=== PATIENT | male | born 1955 | race Caucasian/White ===

== ENCOUNTER → 2016-12-26 | Outpatient (CLI) | payer SELFPAY ==
--- NOTE | 2016-12-26 14:48 | CT ---
EXAMINATION TYPE: CT heart w calcium score DATE OF EXAM: 12/26/2016 8:19 AM COMPARISON: NONE HISTORY: Screening for cardiovascular disorder. 213.9 CT DLP: 97.60 mGycm Automated exposure control for dose reduction was used. CT CALCIUM SCORING Coronary calcium is a marker for plaque (fatty deposits) in a blood vessel or atherosclerosis (harden ing of the arteries). The presence and amount of calcium detected in a coronary artery by the CT sca n, indicates the presence and amount of atherosclerotic plaque. These calcium deposits appear years before the development of heart disease symptoms such as chest pain and shortness of breath. A calcium score is computed for each of the coronary arteries based upon the volume and density of th e calcium deposits. This can be referred to as your calcified plaque burden. It does not correspond directly to the percentage of narrowing in the artery but does correlate with the severity of the un derlying coronary atherosclerosis. PROCEDURE TECHNIQUE - Prospective Gating was used. Slice thickness: 3mm. Density threshold (HU): 130, Pixel threshold: 3, Algorithm: discrete. RESULTS Region: LM Calcium Score ([place]at[place]): 0 Volume (mm3): 0 Mass (g): 0 Region: RCA Calcium Score ([place]): 0 Volume (mm3): 0 Mass (g): 0 Region: LAD Calcium Score ([place]at[place]): 0 Volume (mm3): 0 Mass (g): 0 Region: CX Calcium Score ([place]at[place]): 0 Volume (mm3): 0 Mass (g): 0 Total: Calcium Score ([place]at[place]): 0 Volume (mm3): 0 Mass (g): 0 TOTAL CALCIUM SCORE: 0 OTHER: Ascending thoracic aorta measures 4.1 cm at the level of the main pulmonary artery. The main pulmonary artery measures 2.8 cm at the bifurcation. IMPRESSION: Calcium Score: 0 Implication: No identifiable plaque. Risk of Coronary Artery Disease: Very low, generally less than 5%.
== END | disposition home or self-care (01) ==
LOC: RADCTMAIN 06:53
PROVIDERS: ATTEND Radiology Diagnostic Radiology
DX: Z53.9 Procedure and treatment not carried out, unspecified reason (principal)

== ENCOUNTER → 2017-03-20 | Outpatient (CLI) | payer MEDICAID ==
[2017-03-20 08:42] LABS: Non-African American GFR(MDRD) >60 (>60 ml/min/1.73 sqM)
--- NOTE | 2017-03-20 13:26 | MR ---
EXAMINATION TYPE: MR brain and iac wo/w con DATE OF EXAM: 03/20/2017 COMPARISON: NONE HISTORY: tinnitus hearing loss TECHNIQUE: Multiplanar, multisequence images of the brain and brainstem is performed without and with IV contras t, utilizing 20 mL intravenous MultiHance . FINDINGS: Diffusion weighted images demonstrate no evidence of a recent infarct or other diffusion ab normality. No evidence of cerebellopontine angle mass or acoustic schwannoma. Nasopharynx is symmetric. Changes of chronic sinusitis noted. Mild generalized degenerative change. Areas of abnormal signal are seen throughout the white matter b ilaterally. Findings are nonspecific can be seen with remote microvascular ischemia. Demyelinating pr ocess or other etiologies also in the differential. Craniocervical junction is maintained. Sella turcica has a normal appearance. IMPRESSION: 1. Nonspecific white matter changes most likely on the basis of remote microvascular ischemia. 2. No evidence of cerebellopontine angle mass or acoustic schwannoma.
== END | disposition home or self-care (01) ==
LOC: RADMRIMAIN 08:19
PROVIDERS: ATTEND Nurse Practitioner Family
DX: R90.82 White matter disease, unspecified (principal); H93.19 Tinnitus, unspecified ear; H91.92 Unspecified hearing loss, left ear
CPT/HCPCS: 82565; 70553; A9577

== ENCOUNTER → 2018-05-13 | Outpatient (CLI) | payer MEDICAID | END | disposition home or self-care (01) | LOC: LABWHC1 11:12 | PROVIDERS: ATTEND Radiology Diagnostic Radiology | DX: Z01.812 Encounter for preprocedural laboratory examination (principal) | CPT/HCPCS: 36415; 82565 ==

== ENCOUNTER → 2018-05-14 | Outpatient (CLI) | payer MEDICAID ==
--- NOTE | 2018-05-15 10:39 | MR ---
EXAMINATION TYPE: MR Prostate wo/w con DATE OF EXAM: 05/14/2018 COMPARISON: None IMAGE QUALITY: Good. INDICATION: Test PSA: n/a ng/ml Recent Biopsy and Date: n/a Pathology Report (If Applicable): n/a TECHNIQUE: Examination was performed using a 3T MRI without an endorectal coil. Multiparametric imaging was perf ormed with T2 mutliplanar sequences, axial diffusion weighted imaging and dynamic contrast enhanced i maging, utilizing 10 mL intravenous Gadavist gadolinium contrast. FINDINGS: There is no clinically significant cancer identified. PROSTATE VOLUME: 4.7 cm SI x 4.0 cm AP x 5.0 cm LR Vol= 35.9 cc PSA DENSITY: 4.308 ng/ml/cc (predicted) Seminal vesicles felt within normal limits. Overall some heterogeneity without diffusion abnormality in the peripheral zone or suspicious T2 abnormality in the transitional zone. Other: A few diverticula are identified in visualized portion of the proximal to mid sigmoid colon. IMPRESSION: A focus of clinically significant cancer is not identified. False negative rates for MRI range from 5-20% depending on risk profile. Prostate gland is slightly enlarged in size. Assessment Categories: 1 ? Very low (clinically significant cancer is highly unlikely to be present) 2 ? Low (clinically significant cancer is unlikely to be present) 3 ? Intermediate (the presence of clinically significant cancer is equivocal) 4 ? High (clinically significant cancer is likely to be present) 5 ? Very high (clinically significant cancer is highly likely to be present) Locations: PZ = peripheral zone; TZ = transition zone CZ=central zone; AFS = anterior fibromuscular stroma a=anterior half (i.e. PZa=anterior half of peripheral zone); pm= posterior medial (i.e PZpm) pl = postero-lateral (i.e. PZpl); p = posterior half (i.e. TZp) ; a = anterior half (i.e TZa or P Za) Other: N=no or no; E= equivocal; Y=yes EPE = extraprostatic extension NVB = neurovascular bundle NA = not applicable/not available
== END | disposition home or self-care (01) ==
LOC: RADMRIMAIN 06:36
PROVIDERS: ATTEND Radiology Diagnostic Radiology
DX: Z53.9 Procedure and treatment not carried out, unspecified reason (principal)
CPT/HCPCS: 72197

== ENCOUNTER → 2020-03-08 | Outpatient (CLI) | payer MEDICAID ==
--- NOTE | 2020-03-08 16:19 | CT ---
EXAMINATION TYPE: CT sinus wo con DATE OF EXAM: 03/08/2020 COMPARISON: None HISTORY: Sinus drainage with prior surgery CT DLP: 603 mGycm CONTRAST: 0 mL of Isovue 300 The paranasal sinuses are examined in the axial plane at 2 mm thick sections. Reconstructed images i n the coronal plane were obtained. There is dental amalgam scatter artifact Mucosal thickening is present through the left maxillary sinus. Minimal mucosal thickening is within ethmoid air cells. The sphenoid sinuses are clear. The frontal sinuses are clear. The septum is evaluated. There is septal deviation to the left. Right ostiomeatal unit is patent. There appears to be obstruction of the left ostiomeatal unit with o bstruction to the hiatus semilunaris. IMPRESSIONS: 1. Mucosal thickening within left maxillary sinus with obstruction of the left ostiomeatal unit.
== END | disposition home or self-care (01) ==
LOC: RADCTMAIN 15:46
PROVIDERS: ATTEND Otolaryngology
DX: J34.89 Other specified disorders of nose and nasal sinuses (principal)
CPT/HCPCS: 70486

== ENCOUNTER → 2024-08-04 | Outpatient (CLI) | payer MEDICARE ==
--- NOTE | 2024-08-04 14:55 | MR ---
EXAMINATION TYPE: MR cervical spine wo con DATE OF EXAM: 08/04/2024 2:01 PM COMPARISON: 03/20/2015 CLINICAL INDICATION: Male, 68 years old with history of M48.02, M47.812, M54.12, Pain in neck, head, and arms TECHNIQUE: Multiplanar, multisequence images of the cervical spine were acquired without contrast. FINDINGS: No endocervical junction abnormality, predental space widening, or prevertebral soft tissue swelling. Mild to moderate degenerative disc disease with variable mild disc space narrowing along with disc de siccation. Disc osteophyte complexes are present particularly at C5-C6 and C6/C7, progressed from 201 5. There is trace grade 1 retrolisthesis C5-C6. Moderate scattered facet joint arthropathy throughout. Straightening of the normal cervical lordosis. No suspicious bone marrow replacement. Disc osteophyte complex at C5-C6 contributes to a mild spinal canal stenosis with abutment of both th e dorsal and ventral cord. The overall degree of narrowing has not considerably increased from 2014. Posterior disc osteophyte complex at C6-C7 impresses on the ventral thecal sac with minimal narrowing of the spinal canal. Normal course and signal intensity of the cervical spinal cord. At C3-C4, severe left and moderate right neuroforaminal stenosis. At C4-C5, moderate to severe left and mild right neuroforaminal stenosis. At C5-C6, severe bilateral neuroforaminal stenoses. At C6-C7, moderate bilateral neuroforaminal stenoses. At C7-T1, moderate to severe left and mild right neuroforaminal stenosis. IMPRESSION: 1. Ogtt-xk-kcasviow degenerative disc disease particularly at C5-C6 and C6-C7 shows progression from 03/20/2015. The disc osteophyte complexes here contributing to similar mild spinal canal stenosis at C 5-C6. Interval development of minimal spinal canal narrowing at C6-C7. No cord compression or gunnar c anal compromise. 2. There is scattered moderate facet and uncovertebral joint arthropathy throughout with a degenerati ve trace grade 1 retrolisthesis C5-C6. 3. Variable moderate to severe neuroforaminal stenoses as outlined above. [facility], , 08/04/2024 2:53 PM
== END | disposition home or self-care (01) ==
LOC: RADMRIMAIN 12:54
PROVIDERS: ATTEND Orthopaedic Surgery
DX: M48.02 Spinal stenosis, cervical region (principal); M50.123 Cervical disc disorder at C6-C7 level with radiculopathy; M47.22 Other spondylosis with radiculopathy, cervical region; M43.12 Spondylolisthesis, cervical region; M25.78 Osteophyte, vertebrae
CPT/HCPCS: 72141

== ENCOUNTER → 2025-01-11 | Outpatient (CLI) | payer MEDICARE | END | disposition home or self-care (01) | LOC: LABPAT 11:13 | PROVIDERS: ATTEND Orthopaedic Surgery | DX: Z22.322 Carrier or suspected carrier of Methicillin resistant Staphylococcus aureus (principal) | CPT/HCPCS: 86850; 86900; 86901; 87070 ==

== ENCOUNTER 2025-01-18 07:04 | Day surgery (SDC) | payer MEDICARE ==
--- NOTE | 2025-01-18 06:41 | P.HPOR ---
History of Present Illness H&P Date: 01/13/25 .D:Date: 01/13/25 : 11:55am .T:Title: Spine Surgery Clinical and Risk Review Anjel is a 69 yo male presenting for evaluation of neck pain, arm pain and paresthesias . It was my pleasure to have seen and examined Anjel. In our visit today we have had a chance to go over subjective complaints, physical examination findings and treatments including the natural course history without intervention and various interventional options. The patients imaging demonstrates the following: * C5-7 spondylosis with HNP and stenosis C5-7 collapse with DDD and foraminal stenosis On physical exam, Anjel demonstrates the following: * neck pain with ROM UE paresthesias, pos Spurlung's UE weakness I have explained to the patient that as their condition progresses it will cause further neurological deficits and eventual paralysis. Based on the patients imaging, physical exam, and the rapid progression and disabling nature of their symptoms, at this time I recommend surgery in the form or a: C5-7 ACDF. I discussed the risk and benefits of this procedure at length with Anjel. The patient agreed to considered pursuing the procedure abovementioned. Prior to surgery, she should follow up with her PCP (Cardio, ID, IM etc) for clearance. Questions were invited and answered, and the patient wishes to proceed as out lined below. IMPRESSION: 1. C5-7 spondylosis with stenosis and radiculopathy 2. 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 Neck pain 4. UE weakness Currently, I am recommendin.C5-7 ACDF 2.Pt is cleared for Surgery per PCP 3. Labs and pre op done 4. Questtions answered, pt willing to proceed. Risks: All surgical procedures come with inherent risks, including those related to positioning, anesthesia, intraoperative findings, and postoperative complications. It is important to understand that surgery does not come with any guarantee of a successful outcome as complications and adverse events are always possible. The patient was given a handout in office today discussing the surgical procedure and risks associated with the intervention, both of which were discussed with the patient. These risks include but are not limited to the following: * Experiencing same, different or even worse symptoms in back, neck, arms, or legs compared to before surgery. Requiring further surgery or other forms of treatment presently or at some time in the future at same or other levels of the intended spine surgery. On an extreme but fortunately relatively rare basis severe complication such as blindness, stroke, heart attack, temporary and/or permanent nerve injury, paralysis, coma, or may occur, sometimes without known explanation. Surgical complications may include but are not limited to risk of infection, fluid accumulation in the surgical dissection site, including a seroma or hematoma, that requires additional surgery, wound drainage, bleeding, new numbness or weakness, vision changes/loss, spinal fluid leakage, non-healing and/or infected incision, headaches, difficulty or inability to swallow, hoarseness, hemopneumothorax, pneumothorax, impotence, retrograde ejaculation, vaginal dryness; injury to nerves, spinal cord, blood vessels, lymphatics or other vital organs (i.e., bowel injury, injury to the great vessels); heterotopic bone formation; complications related to the hardware such as screws, rods, cages including misplaced hardware, device failure, instrumentat ion at the wrong spine level, hardware fracture/breakage, or hardware loosening; vertebral failure of the spinal column above or below the newly placed hardware; retained surgical instrumentations or devices and the need for further surgery. * Medical risks of the planned spine surgery include but are not limited to generalized Infections to the whole body or local areas outside of the amna gical site (sepsis), heart attack, bleeding, anaphylaxis, meningitis, seizure, epilepsy, hearing loss, burn paz, laceration of the head or other areas of the body, bruising, hypersensitivity of the skin, bladder over distension; allergic reaction; shoulder injury related to positioning; fat, blood and air clots to other areas of the body like heart, lungs, brain; failure of internal organs such as lungs, kidneys, liver and excessive bleeding. If blood transfusions are necessary, note that transfusions may cause intolerance reactions such as anaphylaxis or other complex reactions. Despite best efforts, the results of spine surgery might not heal in terms of bone, soft tissues such as skin, fascia, ligaments, and joints. Additionally, in order to achieve best possible results, spine surgery may be carried out beyond the initially planned levels and involve decompression, fusion including insertion of hardware at levels other than the original intended area of surgical interest change some portions of the procedure in order to ensure the best possible outcomes. With spine surgery and spinal fusion, there are different off label uses of instrumentation (devices, implants and hardware) as well as biological substances (bone morphogenic proteins, demineralized bone matrix) as well as using extra bone from allograft sources (i.e. cadaver bone) or autograft (iliac crest bone, ribs, or the spine itself). The patient has been given information about these practices and their inherent risks and benefits. We have discussed at length the impact of tobacco, smoking and nicotiene has on healing, specifically in spine surgery and fusion surgery. This can increase you risks of non-healing up to 300% some studies show. We have discussed that the patient has been tobacco/smoke/nicotiene free for the past 6 weeks and will commit to at least 6 weeks after surgery of cessation of smoking and or any tobacco or nicotiene use. They have agreed to this and contest that they have been tobacco/nicotiene free for the past 6 weeks. The patient has had a chance to review all the listed information, has been given print outs detailing this information, and has had all his/her questions answered to their satisfaction. It was my pleasure to have seen and examined Anjel. In our visit today we have had a chance to go over my understanding of our patient's current condition, the natural course history without intervention and various interventional options. Questions were invited and answered, and the patient wishes to proceed as outlined above. I have seen and examined the patient for 25 minutes and we have spent more than 50% of the time in repeat and detailed counseling about the patient's condition, its natural course history with out and as much as can be predicted with surgery and re-review of various surgical treatment options. In conclusion, Anjel requested we proceed with the above suggested surgery and are willing to accept risks and limitations of the suggested surgery as nature of the disease process and our best attempts at treatment for the condition. Thank you again for allowing us to be part of your patient's care. Please don't hesitate to contact me if you have any further questions. # SIGNED BY Bryan Hernandez (SHIRIN)01/13/2025 12:00PM Past Medical History Past Medical History: Asthma, GERD/Reflux, Prostate Disorder Additional Past Medical History / Comment(s): environmental allergies History of Any Multi-Drug Resistant Organisms: None Reported Past Surgical History: Back Surgery Additional Past Surgical History / Comment(s): nasal surgery Past Anesthesia/Blood Transfusion Reactions: No Reported Reaction Additional Past Anesthesia/Blood Transfusion Reaction / Comment(s): no blood tx hx Smoking Status: Never smoker - Past Family History Mother Family Medical History: No Reported History Medications and Allergies Home Medications Medication Instructions Recorded Confirmed Type Loratadine [Claritin] 10 mg PO DAILY 09/21/15 01/12/25 History Omeprazole 40 mg PO AC-BRKFST 09/21/15 01/12/25 History Tamsulosin [Flomax] 0.4 mg PO DAILY 09/21/15 01/12/25 History Celecoxib 200 mg PO DIRECTED 01/12/25 01/12/25 History FLUoxetine HCL 40 mg PO DAILY 01/12/25 01/12/25 History Gabapentin 300 mg PO DIRECTED 01/12/25 01/12/25 History Semaglutide(Unk) 1 injection INJ PAEZ 01/12/25 01/12/25 History buPROPion XL [Wellbutrin XL] 300 mg PO DAILY 01/12/25 01/12/25 History Allergies Allergy/AdvReac Type Severity Reaction Status Date / Time No Known Allergies Allergy Verified 01/12/25 13:54 Physical Examination Osteopathic Statement: *. No significant issues noted on an osteopathic structural exam other than those noted in the History and Physical/Consult.
[~2025-01-18 07:04] MED LIST: HYDROmorphone 0.5 MG/0.5 ML SYRINGE IVP PRN; LIDOCAINE 1% (10MG/ML) FOR IV START INTRADERMA PRN; ONDANSETRON 4 MG/2 ML VIAL IVP PRN; TRANEXAMIC 1,000 MG/100ML-NACL 1,000 MG in SALINE 1 100ML.BAG IVPB PRN; fentaNYL (PF) 50 MCG/ML 2 ML AMP IV PRN
[2025-01-18] MEDS: IV FLUID CONTINUATION 1,000 ML IV ONE ×2 (07:32)
[2025-01-18] MEDS: LACTATED RINGERS 1,000 ML IV SCH (08:06)
[2025-01-18] MEDS: GABAPENTIN 300 MG CAP PO PRN (08:11)
[2025-01-18] MEDS: ACETAMINOPHEN TAB 500 MG TAB PO PRN (08:11)
[2025-01-18] MEDS: ONDANSETRON 4 MG/2 ML VIAL IVP ONE (08:12)
[2025-01-18] MEDS ORDERED: SUCCINYLCHOLINE CHLORIDE 200 MG/10 ML VIAL IV ONE (08:55)
[2025-01-18] MEDS ORDERED: NEOSTIGMINE 1 MG/ML 10 ML VIAL ONE (08:55)
[2025-01-18] MEDS ORDERED: MIDAZOLAM 2 MG/2 ML VIAL ONE (08:55)
[2025-01-18] MEDS ORDERED: KETAMINE HCL IN 0.9 % NACL 50 MG/5 ML SYRINGE ONE (08:55)
[2025-01-18] MEDS ORDERED: ePHEDrine 50 MG/ML 1 ML VIAL ONE (08:55)
[2025-01-18] MEDS ORDERED: PROPOFOL 10 MG/ML 20 ML VIAL IV ONE (08:55)
[2025-01-18] MEDS ORDERED: TRANEXAMIC 1,000 MG/100ML-NACL PREMIX BAG ONE (08:55)
[2025-01-18] MEDS ORDERED: LIDOCAINE 1% INJ 10MG/ML (20 ML MDV) ONE (08:55)
[2025-01-18] MEDS ORDERED: fentaNYL (PF) 50 MCG/ML 2 ML AMP ONE (08:55)
[2025-01-18] MEDS ORDERED: GLYCOPYRROLATE 0.2 MG/ML 2 ML VIAL ONE (08:55)
[2025-01-18] MEDS ORDERED: PHENYLEPHRINE 10 MG/ML VIAL ONE (08:55)
[2025-01-18] MEDS: ceFAZolin 2 GM in DEXTROSE 5% IN WATER 50 ML IVPB PRN (09:00)
[2025-01-18] MEDS: THROMBIN (BOVINE) 5,000 UNIT VIAL MISCELLANE ONE (09:46)
[2025-01-18] MEDS: BUPIVACAINE (PF) 0.5% 30 ML VIAL SQ ONE (09:46)
[2025-01-18] MEDS: LIDOCAINE 2%-EPI 1:100,000 20 ML VIAL SQ ONE (09:46)
--- NOTE | 2025-01-18 11:35 | P.OP ---
Date of Procedure: 01/18/25 Preoperative Diagnosis: 1. C5-7 SPONDYLOSIS WITH RADICULOPATHY 2. C5-7 DDD WITH STENOSIS 3. UE PARESTHESIAS 4. NECK PAIN Postoperative Diagnosis: 1. C5-7 SPONDYLOSIS WITH RADICULOPATHY 2. C5-7 DDD WITH STENOSIS 3. UE PARESTHESIAS 4. NECK PAIN Procedure(s) Performed: 1. C5-6 ANTERIOR CERVICAL ARTHRODESIS 2. C6-7 ANTERIOR CERVICAL ARTHRODESIS 3. ANTERIOR INSTRUMENTATION C5-7 4. INSERTION OF BIOMECHANICAL DEVICE C5-6 AND C6-7, CAGES X2 USE OF IONM USE OF IO MICROSCOPE Implants: GLOBUS COALITION, 12 MM,8M, 9MM CAGES AND INSTRUMENTATION [employer] Anesthesia: GETA Surgeon: Bryan Hernandez Hide Measuring Machine Operator #1: Wayne Dietrich (WAS PRESENT AND ASSISTED WITH ALL ASPECTS OF THE CASE FROM POSITION TO DRESSING PLACEMENT) Estimated Blood Loss (ml): 25 IV fluids (ml): 1,000 Urine output (ml): 300 Pathology: none sent Condition: stable Disposition: PACU Indications for Procedure: Anjel is a 69 yo male presenting for evaluation of neck pain, arm pain and paresthesias . It was my pleasure to have seen and examined Anjel. In our visit today we have had a chance to go over subjective complaints, phys ical examination findings and treatments including the natural course history without intervention and various interventional options. The patients imaging demonstrates the following: * C5-7 spondylosis with HNP and stenosis C5-7 collapse with DDD and foraminal stenosis On physical exam, Anjel demonstrates the following: * neck pain with ROM UE paresthesias, pos Spurlung's UE weakness I have explained to the patient that as their condition progresses it will cause further neurological deficits and eventual paralysis. Based on the patients imaging, physical exam, and the rapid progression and disabling nature of their symptoms, at this time I recommend surgery in the form or a: C5-7 ACDF. I discussed the risk and benefits of this procedure at length with Anjel. The patient agreed to considered pursuing the procedure abovementioned. Prior to surgery, she should follow up with her PCP (Cardio, ID, IM etc) for clearance. Questions were invited and answered, and the patient wishes to proceed as outlined below. IMPRESSION: 1. C5-7 spondylosis with stenosis and radiculopathy 2. 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 Neck pain 4. UE weakness Currently, I am recommendin.C5-7 ACDF 2.Pt is cleared for Surgery per PCP 3. Labs and pre op done 4. Questtions answered, pt willing to proceed. Description of Procedure: C5-7 ACDF The patient was seen and examined in the preoperative area. All preoperative protocols were followed. Informed consent was obtained, risks and benefits of the procedure were discussed at length. Risks including bleeding infection damage to the surrounding tissue and risk of reoperation were discussed with the patient. Risk of anesthesia up to and including was discussed with the patient. These are outlined in the risk review. They were willing to accept these risks and all the risks of surgery. The patient was given a weight-based dose of antibiotics in the form of 2 g Ancef. The patient was seen and evaluated by the anesthesia team who deemed them fit for surgery. The site was marked, the patient was willing to proceed with the procedure. The patient was transferred to the operative suite by the Department of anesthesia. They were then drifted off to sleep by the department anesthesia and GETA was performed. The patient tolerated this well. Davenport catheter was placed by nursing staff, a-traumatically. Once confirmation of lines and ventilation the patient was transferred to a Supine Matti table very carefully. All bony prominences including wrists, elbows, axilla, chest, hips, and thighs, and feet were padded very well. Special attention was paid to the genitalia, and these were padded accordingly. SCDs were placed on bilateral lower extremities and were connected. Arms were well padded and placed at their side thumbs up. Once in position, again we confirmed good ventilation capabilities and that lines were running appropriately. The patients Cervical spine was then exposed. 1010s were placed outlining the incision site. Standard alcohol was used to clean the incision site and allowed to dry. C-arm was used to bio-jamee the patient and confirm level for incision which was marked with a skin marker. Operative briefing was performed with all teams and everyone in agreement to proceed. The patient was then prepped and draped in a normal sterile fashion. Timeout was then performed, and all parties agreed with the procedure to be performed. Transverse skin incision was then made on the right side of the patient's neck 3 cm and dissection taken down to the platysma which was split transversely. Sub platysma flap was made, and interval identified between SCM and medial structures. Omohyoid was visualized and protected. Blunt dissection taken down to the anterior cervical fascia which was identified. Blunt probe was then placed and lateral image taken which confirmed levels for operation. These levels were then marked with a bovi. Subperiosteal dissection of the longissimus muscles were then done over these levels identifying uncovertebral joints bilaterally. Retractor was then placed deep to these muscles and held in place with a bed arm. Starting at C6-7, [place] pins were placed into C6 and C7 and gentle distraction taken out over the levels. Shant rongeur used to remove disc material. Operating microscope brought in for visualization. Complete discectomy performed at this level with curette, rongure and pituitary. High speed emelina used to remove osteophytes anteriorly and posteriorly until PLL was identified. 6-0 up curette then used to identify the canal and resect the PLL. 2-0 and 3-0 Kerrison used then to remove PLL and disc herniation and performed b/l foraminotomies. Once good decompression was accomplished, meticulous hemostasis was performed. Sizers were then placed under lateral fluoroscopy until the desired height and lordosis. Cage was then selected, packed with autograft and allograft and placed under lateral imaging. Once in good position it was tested and stable. Motors run before and after cage placement were stable. The wound was irrigated, and autograft placed lateral to the cage anteriorly for fusion. [place] pin was then removed from C7 and placed into C5. Gentle distraction taken out over C5-6 now. Complete discectomy done at C5-6 as described including decompression, b/l foraminotomies and PLL resection. Burring of endplates was minimal, osteophytes removed as described. Spacers were then sized and placed under lateral imaging. Cage selected, packed with graft and placed under lateral images. Once in position, meticulous hemostasis performed, and motors remained stable before and after cage placement. AP image confirmed good placement of cages. Wound was irrigated. Anterior instrumentation was then done at each level and secured. These were th en locked all screws and achors had good purchase. Final AP and lateral images taken confirmed good placement of hardware and good reduction and yazidism of height. The wound was then irrigated copiously with NSS. Surgicel placed deep in the wound. No drain placed as there was no active bleding or oozing. Layered closure then performed with 3-0 Vicryl in the platysma and subQ tissue. 4-0 Strata fix in the subcuticular tissue. The wound was then cleaned, and dried and skin glue placed. Once glue dried telfa, 4x4, tegaderms were placed. The patient was then transferred back to their hospital bed a-traumatically. They were placed in a soft collar. They were then awakened by the department of anesthesia having tolerated the procedure well without complications.
--- NOTE | 2025-01-18 11:41 | FL ---
EXAMINATION TYPE: FL guidance operating room, XR cervical spine limited DATE OF EXAM: 01/18/2025 CLINICAL INDICATION: Male, 69 years old with history of ANTERIOR CERVICAL FUSION, pain. TECHNIQUE: Fluoroscopy. Limited intraoperative views cervical spine. COMPARISON: Outside cervical spine x-ray July 26, 2024. FINDINGS: Fluoroscopic guidance was provided during cervical spine surgical procedure performed by Adrianna Hernandez. A total of 29 seconds of fluoroscopic time was utilized during the procedure and 5 sp ot images was acquired. Intraoperative images acquired show placement of metallic disc spacers at C5-C6 and C6-C7 levels. IMPRESSION: As Above. [facility], , 01/18/2025 11:39 AM
[2025-01-18] MEDS ORDERED: MAGNESIUM HYDROXIDE 2,400 MG/30 ML CUP PO PRN (12:20)
[2025-01-18] MEDS ORDERED: SENNOSIDES-DOCUSATE SODIUM 1 EACH TAB PO PRN (12:20)
[2025-01-18] MEDS ORDERED: HYDROcodone/APAP 5-325MG 1 EACH TAB PO PRN (12:20)
[2025-01-18] MEDS ORDERED: ONDANSETRON 4 MG/2 ML VIAL IVP PRN (12:20)
[2025-01-18] MEDS ORDERED: HYDROmorphone 0.5 MG/0.5 ML SYRINGE IVP PRN (12:20)
[2025-01-18] MEDS ORDERED: CYCLOBENZAPRINE 5 MG TAB PO PRN (12:20)
[2025-01-18] MEDS ORDERED: HYDROcodone/APAP 10-325MG 1 EACH TAB PO PRN (12:20)
[2025-01-18] MEDS: DEXAMETHASONE SOD PHOSPHATE 4 MG/ML 1 ML VIAL IV ONE (15:26)
[2025-01-18] MEDS: GABAPENTIN 300 MG CAP PO SCH (15:39)
[2025-01-18] MEDS: HYDROmorphone 1 MG/ML 1 ML SYRINGE IVP PRN (15:40)
[2025-01-18] MEDS: ceFAZolin 2 GM in DEXTROSE 5% IN WATER 50 ML IVPB SCH (16:53)
[2025-01-18] MEDS: ACETAMINOPHEN TAB 325 MG TAB PO SCH (16:59)
--- NOTE | 2025-01-18 17:23 | CT ---
EXAMINATION TYPE: CT cervical spine wo con CT DLP: 425.3 mGycm, Automated exposure control for dose reduction was used. DATE OF EXAM: 01/18/2025 4:41 PM COMPARISON: Cervical spine fluoroscopic images of the same date, MR cervical spine 08/04/2024. CLINICAL INDICATION:Male, 69 years old with history of s/p C5-C7 acdf; PHH, s/p C5-C7 acdf., pain TECHNIQUE: Axial CT images from the skull base to the inferior aspect of T2 we obtained without intra venous contrast. Coronal and sagittal reformatted images were also reviewed. FINDINGS: Postsurgical changes from ACDF with metallic disc spacers at C5-C6 and C6-C7. These appear in appropr iate position and are intact. No acute fracture or dislocation. Normal alignment of the vertebral bod ies. Prominent anterior osteophytosis at C4-C5. There is expected surrounding soft tissue edema and g as extending into the right neck anteriorly. Multilevel facet arthropathy of the cervical spine. No s ignificant central canal stenosis. Varying degrees of neural foraminal stenosis. Mild mucosal thickening of the visualized paranasal sinuses. The mastoid air cells are clear. The vis ualized lungs are clear. IMPRESSION: Postsurgical changes from ACDF C5-C7. Hardware appears intact with appropriately positioned. No CT ev idence for complication. [facility], , 01/18/2025 5:20 PM
[2025-01-18 17:27] LABS: Basophils # (A) 0.04 10*3/uL (0.00-0.10); Basophils % (A) 0.4 %; Eosinophils # (A) 0.01 10*3/uL (0.04-0.35); Eosinophils % (A) 0.1 %; HCT 44.8 % (39.6-50.0); HGB 15.5 g/dL (13.0-17.0); Lymphocytes # (A) 0.62 10*3/uL (0.90-5.00); Lymphocytes % (A) 5.5 %; MCH 31.3 pg (27.0-32.0); MCHC 34.6 g/dL (32.0-37.0); MCV 90.5 fL (80.0-97.0); Mean Platelet Volume 8.7 fL (9.5-12.2); Monocytes # (A) 0.37 10*3/uL (0.20-1.00); Monocytes % (A) 3.3 %; Neutrophils # (A) 10.29 10*3/uL (1.80-7.70); Neutrophils % (A) 90.4 %; Platelet Count 332 10*3/uL (140-440); RBC 4.95 10*6/uL (4.40-5.60); RDW 13.3 % (11.5-14.5); WBC 11.36 10*3/uL (4.50-10.00)
[2025-01-18] MEDS ORDERED: GABAPENTIN 300 MG CAP PO SCH (20:00)
--- NOTE | 2025-01-18 20:55 | P.CONS ---
History of Present Illness - Reason for Consult Consult date: 01/18/25 medical co management - Chief Complaint elective neck surgery - History of Present Illness Anjel is a 69-year-old male with past medical history of major depression type 2 diabetes and BPH. He had presented to the today to the hospital for elective neck surgery. He had a C5-C6 anterior cervical arthrodesis and a C6-C7 anterior cervical arthrodesis. He is currently seen in room 460. He has a neck brace currently attached reports he has moderate mount of pain but overall is doing very well. He is currently sitting watching TV. He otherwise denies any complaints when I am speaking to him. He does report some sore throat pain which I imagine breathing towards the ET tube during surge ry Review of Systems Pertinent positives and negatives as discussed in HPI, a complete review of systems was performed and all other systems are negative. Past Medical History Past Medical History: Asthma, GERD/Reflux, Prostate Disorder Additional Past Medical History / Comment(s): environmental allergies History of Any Multi-Drug Resistant Organisms: None Reported Past Surgical History: Back Surgery Additional Past Surgical History / Comment(s): nasal surgery Past Anesthesia/Blood Transfusion Reactions: No Reported Reaction Additional Past Anesthesia/Blood Transfusion Reaction / Comm: no blood tx hx Past Psychological History: Depression Smoking Status: Never smoker Past Alcohol Use History: Occasional Past Drug Use History: None Reported - Past Family History Mother Family Medical History: No Reported History Medications and Allergies Home Medications Medication Instructions Recorded Confirmed Type Loratadine [Claritin] 10 mg PO DAILY 09/21/15 01/18/25 History Omeprazole 40 mg PO AC-BRKFST 09/21/15 01/18/25 History Tamsulosin [Flomax] 0.4 mg PO DAILY 09/21/15 01/18/25 History Celecoxib 200 mg PO DIRECTED 01/12/25 01/18/25 History FLUoxetine HCL 40 mg PO DAILY 01/12/25 01/18/25 History Gabapentin 300 mg PO DIRECTED 01/12/25 01/18/25 History Semaglutide(Unk) 1 injection INJ PAEZ 01/12/25 01/18/25 History buPROPion XL [Wellbutrin XL] 300 mg PO DAILY 01/12/25 01/18/25 History Allergies Allergy/AdvReac Type Severity Reaction Status Date / Time No Known Allergies Allergy Verified 01/18/25 07:46 Physical Exam Vitals: Vital Signs Temp Pulse Resp BP Pulse Ox 01/18/25 19:16 98.4 F 82 18 147/76 96 01/18/25 15:30 97.6 F 81 16 162/87 97 01/18/25 14:54 90 18 152/89 98 01/18/25 14:24 91 15 161/92 97 01/18/25 13:24 85 16 145/92 99 01/18/25 13:09 92 14 142/94 96 01/18/25 12:54 89 16 130/74 98 01/18/25 12:39 92 16 130/76 98 01/18/25 12:24 87 14 119/79 98 01/18/25 12:09 79 13 109/76 98 01/18/25 11:54 97 F L 86 10 L 103/63 01/18/25 08:10 97.6 F 77 16 150/94 97 Intake and Output 01/18/25 01/18/25 01/18/25 06:59 14:59 22:59 Intake Total 1650 225 Output Total 230 Balance 1420 225 Intake: IV 1650 Oral 225 Output: Urine 205 Estimated Blood Loss 25 Other: # Voids 2 Weight 107 kg General: non toxic, no distress, appears o stated age Derm: warm, dry Head: atraumatic, normocephalic, symmetric Eyes: EOMI, no lid lag, anicteric sclera, pupils equal round reactive to light ENT: Nose and ears atraumatic, no thrush, no pharyngeal erythema, neck brace currently attavched Neck: No thyromegaly, no cervical lymphadenopathy, trachea midline, supple Mouth: no lip lesion, mucus membranes moist Cardiovascular: S1S2 reg, no murmur, positive posterior tibial pulse bilateral, no edema, capillary refill less than 2 seconds Lungs: clear to ascultation bilateral, no ronchi, no rales, no wheeze, no accessory muscle use Abdominal: soft, nontender to palpation, no guarding, no appreciable organomegaly, normal bowel sounds Ext: no gross muscle atrophy, muscle strength muscle strength 5 out of 5 in all 4 extremities, no contractures Neuro: CN II-XI grossly intact, light touch intact all 4 extremities, finger to nose within normal limits, Psych: Alert, oriented, appropriate affect Results CBC & Chem 7: 01/18/25 16:51 Labs: Abnormal Lab Results - Last 24 Hours (Table) 01/18/25 Range/Units 16:51 WBC 11.36 H (4.50-10.00) 10*3/uL MPV 8.7 L (9.5-12.2) fL Neutrophils # 10.29 H (1.80-7.70) 10*3/uL Lymphocytes # 0.62 L (0.90-5.00) 10*3/uL Eosinophils # 0.01 L (0.04-0.35) 10*3/uL Assessment and Plan Assessment: #) s/p c5-6 anterior cervical arthrodesis and C6-C7 anterior cervical arthrodesis. Continue neurochecks and brace as per orthopedic recommendations. Pain control with as needed [place] and as needed IV hydromorphone. #) Major dpression continue home wellbutrin 300 mg daily and fluoxtine 40 mg daily #) BPH continue tamusliosin 0.4 mg hs dvt ppx: SCDS
[2025-01-19] MEDS: PANTOPRAZOLE 40 MG TABLET PO SCH (06:16)
[2025-01-19] MEDS: HYDROcodone/APAP 5-325MG 1 EACH TAB PO PRN (06:16)
[2025-01-19 07:47] VITALS: BP 153/88; PULSE 67; RESP 16; TEMP 97.8
[2025-01-19 08:17] LABS: Basophils # (A) 0.07 X 10*3/uL (0.00-0.10); Basophils % (A) 0.6 %; Eosinophils # (A) 0.12 X 10*3/uL (0.04-0.35); Eosinophils % (A) 1.1 %; HCT 45.4 % (39.6-50.0); HGB 14.9 g/dL (13.0-17.0); Lymphocytes # (A) 1.71 X 10*3/uL (0.90-5.00); Lymphocytes % (A) 15.2 %; MCH 30.6 pg (27.0-32.0); MCHC 32.8 g/dL (32.0-37.0); MCV 93.2 FL (80.0-97.0); Mean Platelet Volume 9.1 FL (9.5-12.2); NRBC Per 100 WBC 0 X 10*3/uL (0.00-0.01); Neutrophils # (A) 8.42 X 10*3/uL (1.80-7.70); Neutrophils % (A) 74.8 %; Platelet Count 315 X 10*3/uL (140-440); RBC 4.87 X 10*6/uL (4.40-5.60); RDW 13.7 % (11.5-14.5); WBC 11.25 X 10*3/uL (4.50-10.00)
[2025-01-19 08:43] LABS: BUN/Creat Ratio 11.11 Ratio (12.00-20.00); Calcium 9.2 mg/dL (8.7-10.3); Chloride 102 mmol/L (96-109); Glucose 106 mg/dL (70-110); Sodium 137 mmol/L (135-145)
[2025-01-19] MEDS: buPROPion XL 300 MG TAB.ER.24H PO SCH (08:54)
[2025-01-19] MEDS: TAMSULOSIN 0.4 MG CAP.ER.24H PO SCH (08:54)
[2025-01-19] MEDS: SENNOSIDES-DOCUSATE SODIUM 1 EACH TAB PO SCH (08:54)
[2025-01-19] MEDS: FLUoxetine HCL 20 MG CAP PO SCH (08:55)
[2025-01-19] MEDS: BENZOCAINE/MENTHOL LOZENG 1 EACH LOZENGE MUCOUS MEM PRN (08:58)
--- NOTE | 2025-01-19 11:42 | P.DS ---
Providers Date of admission: 01/18/2025 Expected date of discharge: 01/19/25 Attending physician: Bryan Hernandez DO Consults: 01/18/25 12:20 Consult Physician Routine Consulting Provider: Hernesto Dixon Consult Reason/Comments: medical management s/p C5-C7 acdf Do you want consulting provider notified?: Yes [facility] Course: Date of admission: 01/18/2025 Date of discharge: 01/19/2025 Admission diagnosis: 1. C5-7 SPONDYLOSIS WITH RADICULOPATHY 2. C5-7 DDD WITH STENOSIS 3. UE PARESTHESIAS 4. NECK PAIN Discharge diagnosis: Same Attending physician: Dr. Hernandez Surgical procedures: C5-C7 ACDF Brief history: Patient is a 69-year-old male with a history of C5-C7 spondylosis with radiculopathy; C5-C7 degenerative disease with stenosis; upper extremity paresthesias; neck pain. At this point patient has failed conservative treatment measures and has opted to proceed with a elective C5-C7 ACDF. Hospital course: Details of patient's surgery can be found in operative report. Patient tolerated the procedure well and was subsequently transported to orthopedic floor. Patient's orthopeidc and medical care was provided daily. Patient had daily laboratory tests performed for evaluation of overall blood counts. Patient had daily physical therapy to include strengthening range of motion as well as education with walker ambulation. Patient was noted to have a relatively uneventful postoperative course. Patient reported satisfactory pain control with oral pain medications by postoperative day 1. Patient showed sa tisfactory progress with physical therapy. Patient moved steadily through the program and had no difficulty meeting the goals by postoperative day 1. Given patient's otherwise satisfactory course and having met physical therapy goals, plan is to discharge patient home on postoperative day 1. Discharge condition/disposition: Patient will be discharged home in stable condition. Discharge medications: Instructions are given on resumption of patient's normal daily medications per primary care recommendation, in addition patient will be prescribed Haskins; senna; Duricef; gabapentin; Flexeril. Spine Discharge and Recovery Instructions Date of Surgery: 01/18/25 Diagnosis: Cervical spondylosis with stenosis Procedure: C5-C7 anterior cervical discectomy and fusion Medications: See medication list All medication refills should be obtained through your primary care doctor or your clinic spine surgeon. Please discuss prescription refills at your follow up appointment. Do not call the hospital for medication refills. Activity: Encourage ambulation with assist of walker, Up and about 6-8x daily PT/OT daily work on balance, strength and mobility Up in chair with all meals Shower daily Brace: Use brace when up and about, do not wear in bed or shower Dressing: Leave your dressing in place for a total of 3 days post operatively. Then you may remove your dressing and leave open to air. Keep the area clean and if not able to keep area clean, then cover with sterile gauze and tape. Showering: You may shower 3 days after your procedure allowing soap and water to run over incision. Do not scrub. Do not soak. Blot dry. Follow up: Please confirm a follow up appointment with your surgeon 2 weeks post operatively. Please make an appointment to follow up with your PCP in 1-2 weeks after surgery for evaluation '3 phase, 3-week plan' POST OP WEEKS 1-3 1. Lifting/carrying/pushing/pulling limited to less than 5 pounds. 2. Do not sit for longer than 15 minutes at one time. Get up and walk around. Prolonged sitting is NOT advised. If you lay down, see if you can tolerate laying down on you front (belly side) 3. Walk for periods of 15 minutes = 1 mile but no longer; do it multiple times times each day. 4. Ice your low back after activity. POST OP WEEKS 3-6 1. Lifting limited to less than 20 pounds. 2. Do not sit for longer than 30 minutes at a time. Frequently change positions. Use a sit-to stand workstation or take frequent breaks from sitting if you have returned to work. 3. Walk for 30 minutes each day. If possible, do these three or more times a day POST OP WEEKS 6+ At your 6-week appointment we will give you a physical therapy referral to focus on a core stabilization and strengthening program. You should also work on leg & buttock strengthening, hamstring & quadriceps stretching, and continue a low impact aerobic activity program such as swimming, walking, or riding a stationary bicycle. During the initial 6 weeks after your surgery, you are at the highest risk of re-injuring your spine. You should generally avoid BLT's (bending, lifting and twisting combination motions) and follow the above guidelines to reduce the chance of reinjury. You can anticipate post op appointments in our office at approximately 3 weeks a nd 6 weeks after your surgery. INCISION CARE: If your incision is not draining you do NOT need to cover it with a dressing. Keep your incision clean, dry and intact. In most cases, we apply skin glue, jose a or sutures to the incision at the time of surgery. This will be like a crust or have the appearance of a scab and will fall off in time on its own. The stitches or jose a need to be removed at 3 weeks post op appointment. You may begin to shower 3 days after surgery (this allows the glue to field well). However, please avoid scrubbing the incision site or peeling off any of the skin glue. This will ensure optimal healing of your incision. Also, during this time avoid soaking the incision area in water - this includes swimming pools, hot tubs or baths. No ointments, lotions or oils on the incision until your surgeon allows. Leave jose a, sutures or glue in place. Neurological dysfunction that comes on suddenly can also be a sign of a stroke. Below some common symptoms of a stroke are listed: B - balance difficulty such as sudden onset walking or leaning to one side - NEW E - eye problem such as sudden double vision or trouble seeing on one side - NEW F - Facial weakness or numbness on one side - NEW A - Arm or leg weakness or numbness on one side - NEW S - Slurred speech or difficulty with word finding - NEW T - Time is BRAIN! Call 911 as soon as you recognize these symptoms Diet: Consume a regular diet rich in vegetables and lean protein such as chicken or fish. You should consume in a ratio of approximately 20% fats|40% carbohydrates|40%protein. Vegetables, sweet potatoes, brown rice or quinoa are examples of good carbohydrates. Chips, white bread, cookies and sweets/sugar are examples of bad carbohydrates. Limit your bad carbs, go wild with good carbs. "Life's Simple 7" Guidelines as per [place] [employer] These will help you reclaim your life after surgery and office helper clerical in your recovery, keeping in mind your restrictions. (1) Get Active. Physical activity can help people lose weight, control high blood pressure and cholesterol, feel emotionally better, and sleep better. (2) Control Cholesterol. Avoid a diet high in saturated fat, trans fat, & cholesterol. Limit whole milk & cream, ice cream, butter, egg yolks, processed meats (like sausage and hot dogs), and fatty meats. Choose healthy foods that are low in saturated fat, trans fat and cholesterol which include: Fruits and vegetables, fiber rich grain products (like whole grain pasta and brown rice), lean meat such as chicken, fish, nuts, seeds, and legumes. (3) Eat Better. Eat small portions. Shop at the grocery with a list and do not stray from it. Tips for a healthy diet include: Limit sodium intake to less than 1500mg daily, avoid prepackaged, processed, and fast foods, choose a diet rich in fruits, vegetables, and whole grain, high fiber foods, and limit s aturated & cholesterol in your diet. (4) Manage Blood Pressure. If you have high blood pressure, you should have a cuff at home so that you can check your blood pressure regularly. Be sure you have a good cuff. An arm one is generally better than a wrist one. Bring the cuff to a doctor's appointment to validate that the measurements that your cuff are taking are accurate. Take your blood pressure twice daily when you are sitting down and relaxing. Record the numbers in a log and bring this log with you to your doctors' appointments. (5) Lose Weight if your BMI is above 25. A healthy BMI is between 19-25. To calculate Your BMI, you may use a Standard BMI Calculator on the NIH BMI website: <www.nhlbi.nih.gov/guidelines/obesity/BMI/bmicalc.htm>. Weigh oneself daily. If you are overweight, set a goal to lose weight. A pound a week loss if needed is a good target. (6) Reduce Blood Sugar. Limit foods and liquids with "added sugars." (Added sugars include sucrose, fructose, glucose, maltose, dextrose, high fructose corn syrup, corn syrup, concentrated fruit juice and honey). (7) Stop Smoking. If you smoke, quitting smoking is one of the best things that you can do for your health. Smoking increases your risk of heart attack, stroke, and peripheral vascular disease, which is a build-up of plaque in your arteries. Please discard all the cigarettes and lighters in your house. Have a plan for what you will do when you have the urge to smoke. Direct and second- hand smoke shortens your life as well as the lives of your family, friends and others around you. For your health and the health of those around you, please consider quitting! Proper Bending Body Mechanics: Maintain a wide stance with one foot slightly in front of the other. Keep your back straight. Bend utilizing the strength in your hips and knees. Do not bend at the waist. Maintain the lifted object at your waist-level close to your body. Avoid lifting weight that causes immediately pain or pain anywhere in the body afterwards. Smoking/Nicotine If there was ever one thing that you could do to increase your overall health, decrease your risk of cardiovascular problems by about 39% the second you make the choice, it is to STOP SMOKING. Your body's most instant gratification is the second you stop smoking. We have all heard the studies, read the articles but it is true, smoking is extremely bad for your overall health, and moreover it is detrimental to your bone health. Nicotine, IN ANY FORM, kills bone cells, prevents your body from healing fractures, and significantly prolongs healing after surgery. In spine surgery specifically, it increases your risk of not healing your bones to create a fusion and increases your risk of having a revision surgery due to this up to 60%. I know it is hard. I know it feels impossible. But there are ways. Take control of your life. We are here to help you through it. And when you are ready, ask us and we can direct you to help if you desire. Use the START Plan to Quit Smoking (please visit the Helpgu[employer].org website listed below for more information): S = Set a quit date. Choose a date within the next 2 weeks, so you have enough time to prepare without losing your motivation to quit. If you mainly smoke at work, quit on the weekend, so you have a few days to adjust to the change. T = Tell family, friends, and co-workers that you plan to quit. Let your friends and family in on your plan to quit smoking and tell them you need their support and encouragement to stop. Look for a quit rajeev who wants to stop smoking as well. You can help each other get through the rough times. A = Anticipate and plan for the challenges you'll face while quitting. Most people who begin smoking again do so within the first 3 months. You can help yourself make it through by preparing ahead for common challenges, such as nicotine withdrawal and cigarette cravings. R = Remove cigarettes and other tobacco products from your home, car, and work. Throw away all your cigarettes (no emergency pack!), lighters, ashtrays, and matches. Wash your clothes and freshen up anything that smells like smoke. Shampoo your car, clean your drapes and carpet, and steam your furniture. T = Talk to your doctor about getting help to quit. Your doctor can prescribe medication to help with withdrawal and suggest other alternatives. If you can't see a doctor, you can get many products over the counter at your local pharmacy or grocery store, including the nicotine patch, nicotine lozenges, and nicotine gum. Resources for Quitting Smoking: <https://www.[place].gov/documents/[facility]/Quit_Tobacco_Resources_for_patients_313 480_7.pdf> Supplementation: Take recommended dosages of Vitamin D and Calcium to help fortify your bones and help them to heal. See your health maintenance packet for dosages and recommended levels. DVT/VTE prophylaxis: You will be given compression stockings from the hospital. Wear these daily for the first two weeks after surgery. You may take them off at night. You may be prescribed a medication to help thin your blood. Take this as directed. If you are not prescribed this medication, early and frequent ambulation has been shown to be the best prophylaxis to deep vein thrombosis and sequelae related to this event. Assessment: 1. C5-7 SPONDYLOSIS WITH RADICULOPATHY 2. C5-7 DDD WITH STENOSIS 3. UE PARESTHESIAS 4. NECK PAIN Procedures: C5-C7 ACDF Patient Condition at Discharge: Good Plan - Discharge Summary Discharge Rx Participant: No New Discharge Prescriptions: New cefaDROXiL [Duricef] 500 mg PO Q12HR 5 Days #10 cap Gabapentin [Neurontin] 300 mg PO TID #30 cap HYDROcodone/APAP 7.5-325MG [Haskins 7.5-325] 1 tab PO Q6HR PRN #28 tab PRN Reason: Pain Cyclobenzaprine [Flexeril] 5 mg PO TID #21 tablet Sennosides/Docusate Sodium [Senna Plus 8.6-50 mg Softgel] 1 each PO DAILY #20 capsule No Action Tamsulosin [Flomax] 0.4 mg PO DAILY Loratadine [Claritin] 10 mg PO DAILY Omeprazole 40 mg PO AC-BRKFST buPROPion XL [Wellbutrin XL] 300 mg PO DAILY FLUoxetine HCL 40 mg PO DAILY Gabapentin 300 mg PO DIRECTED Celecoxib 200 mg PO DIRECTED Semaglutide(Unk) 1 injection INJ PAEZ Discharge Medication List Loratadine [Claritin] 10 mg PO DAILY 09/21/15 [History] Omeprazole 40 mg PO AC-BRKFST 09/21/15 [History] Tamsulosin [Flomax] 0.4 mg PO DAILY 09/21/15 [History] Celecoxib 200 mg PO DIRECTED 01/12/25 [History] FLUoxetine HCL 40 mg PO DAILY 01/12/25 [History] Gabapentin 300 mg PO DIRECTED 01/12/25 [History] Semaglutide(Unk) 1 injection INJ PAEZ 01/12/25 [History] buPROPion XL [Wellbutrin XL] 300 mg PO DAILY 01/12/25 [History] Cyclobenzaprine [Flexeril] 5 mg PO TID #21 tablet 01/19/25 [Rx] Gabapentin [Neurontin] 300 mg PO TID #30 cap 01/19/25 [Rx] HYDROcodone/APAP 7.5-325MG [Haskins 7.5-325] 1 tab PO Q6HR PRN #28 tab 01/19/25 [Rx] Sennosides/Docusate Sodium [Senna Plus 8.6-50 mg Softgel] 1 each PO DAILY #20 capsule 01/19/25 [Rx] cefaDROXiL [Duricef] 500 mg PO Q12HR 5 Days #10 cap 01/19/25 [Rx] Follow up Appointment(s)/Referral(s): Raymundo Hsieh DO [Primary Care Provider] - 1 Week Bryan Hernandez DO [Doctor of Osteopathic Medicine] - 02/02/25 10:15 am Activity/Diet/Wound Care/Special Instructions: Spine Discharge and Recovery Instructions Date of Surgery: 01/18/25 Diagnosis: Cervical spondylosis with stenosis Procedure: C5-C7 anterior cervical discectomy and fusion Medications: See medication list All medication refills should be obtained through your primary care doctor or your clinic spine surgeon. Please discuss prescription refills at your follow up appointment. Do not call the hospital for medication refills. Activity: Encourage ambulation with assist of walker, Up and about 6-8x daily PT/OT daily work on balance, strength and mobility Up in chair with all meals Shower daily Brace: Use brace when up and about, do not wear in bed or shower Dressing: Leave your dressing in place for a total of 3 days post operatively. Then you may remove your dressing and leave open to air. Keep the area clean and if not able to keep area clean, then cover with sterile gauze and tape. Showering: You may shower 3 days after your procedure allowing soap and water to run over incision. Do not scrub. Do not soak. Blot dry. Follow up: Please confirm a follow up appointment with your surgeon 2 weeks post operati vely. Please make an appointment to follow up with your PCP in 1-2 weeks after surgery for evaluation '3 phase, 3-week plan' POST OP WEEKS 1-3 1. Lifting/carrying/pushing/pulling limited to less than 5 pounds. 2. Do not sit for longer than 15 minutes at one time. Get up and walk around. Prolonged sitting is NOT advised. If you lay down, see if you can tolerate laying down on you front (belly side) 3. Walk for periods of 15 minutes = 1 mile but no longer; do it multiple times times each day. 4. Ice your low back after activity. POST OP WEEKS 3-6 1. Lifting limited to less than 20 pounds. 2. Do not sit for longer than 30 minutes at a time. Frequently change positions. Use a sit-to stand workstation or take frequent breaks from sitting if you have returned to work. 3. Walk for 30 minutes each day. If possible, do these three or more times a day POST OP WEEKS 6+ At your 6-week appointment we will give you a physical therapy referral to focus on a core stabilization and strengthening program. You should also work on leg & buttock strengthening, hamstring & quadriceps stretching, and continue a low impact aerobic activity program such as swimming, walking, or riding a stationary bicycle. During the initial 6 weeks after your surgery, you are at the highest risk of re-injuring your spine. You should generally avoid BLT's (bending, lifting and twisting combination motions) and follow the above guidelines to reduce the chance of reinjury. You can anticipate post op appointments in our office at approximately 3 weeks and 6 weeks after your surgery. INCISION CARE: If your incision is not draining you do NOT need to cover it with a dressing. Keep your incision clean, dry and intact. In most cases, we apply skin glue, jose a or sutures to the incision at the time of surgery. This will be like a crust or have the appearance of a scab and will fall off in time on its own. The stitches or jose a need to be removed at 3 weeks post op appointment. You may begin to shower 3 days after surgery (this allows the glue to field well). However, please avoid scrubbing the incision site or peeling off any of the skin glue. This will ensure optimal healing of your incision. Also, during this time avoid soaking the incision area in water - this includes swimming pools, hot tubs or baths. No ointments, lotions or oils on the incision until your surgeon allows. Leave jose a, sutures or glue in place. Neurological dysfunction that comes on suddenly can also be a sign of a stroke. Below some common symptoms of a stroke are listed: B - balance difficulty such as sudden onset walking or leaning to one side - NEW E - eye problem such as sudden double vision or trouble seeing on one side - NEW F - Facial weakness or numbness on one side - NEW A - Arm or leg weakness or numbness on one side - NEW S - Slurred speech or difficulty with word finding - NEW T - Time is BRAIN! Call 911 as soon as you recognize these symptoms Diet: Consume a regular diet rich in vegetables and lean protein such as chicken or fish. You should consume in a ratio of approximately 20% fats|40% carbohydrates|40%protein. Vegetables, sweet potatoes, brown rice or quinoa are examples of good carbohydrates. Chips, white bread, cookies and sweets/sugar are examples of bad carbohydrates. Limit your bad carbs, go wild with good carbs. "Life's Simple 7" Guidelines as per [place] [employer] These will help you reclaim your life after surgery and office helper clerical in your recovery, keeping in mind your restrictions. (1) Get Active. Physical activity can help people lose weight, control high blood pressure and cholesterol, feel emotionally better, and sleep better. (2) Control Cholesterol. Avoid a diet high in saturated fat, trans fat, & cholesterol. Limit whole milk & cream, ice cream, butter, egg yolks, processed meats (like sausage and hot dogs), and fatty meats. Choose healthy foods that are low in saturated fat, trans fat and cholesterol which include: Fruits and vegetables, fiber rich grain products (like whole grain pasta and brown rice), lean meat such as chicken, fish, nuts, seeds, and legumes. (3) Eat Better. Eat small portions. Shop at the grocery with a list and do not stray from it. Tips for a healthy diet include: Limit sodium intake to less than 1500mg daily, avoid prepackaged, processed, and fast foods, choose a diet rich in fruits, vegetables, and whole grain, high fiber foods, and limit saturated & cholesterol in your diet. (4) Manage Blood Pressure. If you have high blood pressure, you should have a cuff at home so that you can check your blood pressure regularly. Be sure you have a good cuff. An arm one is generally better than a wrist one. Bring the cuff to a doctor's appointment to validate that the measurements that your cuff are taking are accurate. Take your blood pressure twice daily when you are sitting down and relaxing. Record the numbers in a log and bring this log with you to your doctors' appointments. (5) Lose Weight if your BMI is above 25. A healthy BMI is between 19-25. To calculate Your BMI, you may use a Standard BMI Calculator on the NIH BMI website: <www.nhlbi.nih.gov/guidelines/obesity/BMI/bmicalc.htm>. Weigh oneself daily. If you are overweight, set a goal to lose weight. A pound a week loss if needed is a good target. (6) Reduce Blood Sugar. Limit foods and liquids with "added sugars." (Added sugars include sucrose, fructose, glucose, maltose, dextrose, high fructose corn syrup, corn syrup, concentrated fruit juice and honey). (7) Stop Smoking. If you smoke, quitting smoking is one of the best things that you can do for your health. Smoking increases your risk of heart attack, stroke, and peripheral vascular disease, which is a build-up of plaque in your arteries. Please discard all the cigarettes and lighters in your house. Have a plan for what you will do when you have the urge to smoke. Direct and second- hand smoke shortens your life as well as the lives of your family, friends and others around you. For your health and the health of those around you, please consider quitting! Proper Bending Body Mechanics: Maintain a wide stance with one foot slightly in front of the other. Keep your back straight. Bend utilizing the strength in your hips and knees. Do not bend at the waist. Maintain the lifted object at your waist-level close to your body. Avoid lifting weight that causes immediately pain or pain anywhere in the body afterwards. Smoking/Nicotine If there was ever one thing that you could do to increase your overall health, decrease your risk of cardiovascular problems by about 39% the second you make the choice, it is to STOP SMOKING. Your body's most instant gratification is the second you stop smoking. We have all heard the studies, read the articles but it is true, smoking is extremely bad for your overall health, and moreover it is detrimental to your bone health. Nicotine, IN ANY FORM, kills bone cells, prevents your body from healing fractures, and significantly prolongs healing after surgery. In spine surgery specifically, it increases your risk of not healing your bones to create a fusion and increases your risk of having a revision surgery due to this up to 60%. I know it is hard. I know it feels impossible. But there are ways. Take control of your life. We are here to help you through it. And when you are ready, ask us and we can direct you to help if you desire. Use the START Plan to Quit Smoking (please visit the [employer]gu[employer].org website listed below for more information): S = Set a quit date. Choose a date within the next 2 weeks, so you have enough time to prepare without losing your motivation to quit. If you mainly smoke at work, quit on the weekend, so you have a few days to adjust to the change. T = Tell family, friends, and co-workers that you plan to quit. Let your friends and family in on your plan to quit smoking and tell them you need their support and encouragement to stop. Look for a quit rajeev who wants to stop smoking as well. You can help each other get through the rough times. A = Anticipate and plan for the challenges you'll face while quitting. Most people who begin smoking again do so within the first 3 months. You can help yourself make it through by preparing ahead for common challenges, such as nicotine withdrawal and cigarette cravings. R = Remove cigarettes and other tobacco products from your home, car, and work. Throw away all your cigarettes (no emergency pack!), lighters, ashtrays, and matches. Wash your clothes and freshen up anything that smells like smoke. Shampoo your car, clean your drapes and carpet, and steam your furniture. T = Talk to your doctor about getting help to quit. Your doctor can prescribe medication to help with withdrawal and suggest other alternatives. If you can't see a doctor, you can get many products over the counter at your local pharmacy or grocery store, including the nicotine patch, nicotine lozenges, and nicotine gum. Resources for Quitting Smoking: <https://www.[place].gov/documents/md jarrell/Quit_Tobacco_Resources_for_patients_313480_7.pdf> Supplementation: Take recommended dosages of Vitamin D and Calcium to help fortify your bones and help them to heal. See your health maintenance packet for dosages and recommended levels. DVT/VTE prophylaxis: You will be given compression stockings from the hospital. Wear these daily for the first two weeks after surgery. You may take them off at night. You may be prescribed a medication to help thin your blood. Take this as directed. If you are not prescribed this medication, early and frequent ambulation has been shown to be the best prophylaxis to deep vein thrombosis and sequelae related to this event. Discharge Disposition: HOME WITH HOME HEALTH SERVICES
--- NOTE | 2025-01-19 12:02 | P.PN ---
Subjective Progress Note Date: 01/19/25 Principal diagnosis: 1. C5-7 SPONDYLOSIS WITH RADICULOPATHY 2. C5-7 DDD WITH STENOSIS 3. UE PARESTHESIAS 4. NECK PAIN Patient was seen at bedside this morning sitting up in chair with soft c-collar in place over cervical spine. Patient says he has been urinating since surgery yesterday without issue. Patient says he has been up walking around the room under his own power. He is looking forward to going home later today. Patient denies any other issues at this time. Objective - Vital Signs Vital signs: Vital Signs Temp 97.8 F 01/19/25 06:54 Pulse 67 01/19/25 09:00 Resp 16 01/19/25 09:00 BP 153/88 01/19/25 06:54 Pulse Ox 97 01/19/25 06:54 FiO2 Intake & Output 01/18/25 01/19/25 01/19/25 18:59 06:59 18:59 Intake Total 1875 Output Total 230 Balance 1645 Weight 107 kg Intake: IV 1650 Oral 225 Output: Urine 205 Estimated Blood Loss 25 Other: Voiding Method Toilet # Voids 2 4 - Exam Soft cervical collar in place. Optifoam dressing in place over anterior cerv ical spine. Incision appears to be healing well. Negative for any active drainage. Some mild swelling present over the anterior cervical spine. Sensation is equal, symmetric, intact bilaterally throughout the upper and lower extremities on exam. Patient does have some generalized tenderness palpation near the incision over the anterior cervical spine. Nontender on rest of exam. Patient does have limited range of motion throughout the bilateral upper extremities on exam and shoulders in flexion/abduction/external/internal rotation. Patient does have full range of motion throughout bilateral wrist and elbows in flexion/tension. 4-/5 in all major motor groups in bilateral upper extremities. 4/5 in all major motor groups in bilateral lower extremities. Radial pulse intact, 2+ bilaterally. Cap refill under 3 seconds in digits of upper extremities. Negative clonus bilaterally. Negative Homans bilaterally. - Labs CBC & Chem 7: 01/19/25 03:34 01/19/25 03:34 Labs: Abnormal Lab Results - Last 24 Hours (Table) 01/18/25 01/19/25 01/19/25 Range/Units 16:51 03:34 03:34 WBC 11.36 H 11.25 H (4.50-10.00) 10*3/uL MPV 8.7 L 9.1 L (9.5-12.2) fL Neutrophils # 10.29 H 8.42 H (1.80-7.70) 10*3/uL Lymphocytes # 0.62 L (0.90-5.00) 10*3/uL Eosinophils # 0.01 L (0.04-0.35) 10*3/uL BUN/Creatinine Ratio 11.11 L (12.00-20.00) Ratio Assessment and Plan Assessment: 1. C5-7 SPONDYLOSIS WITH RADICULOPATHY 2. C5-7 DDD WITH STENOSIS 3. UE PARESTHESIAS 4. NECK PAIN Postop day 1 status post C5-C7 ACDF Plan: 1. C5-7 SPONDYLOSIS WITH RADICULOPATHY; C5-7 DDD WITH STENOSIS; UE PARESTHESIAS; NECK PAIN -C5-C7 ACDF surgery performed yesterday, 01/18/2025. Patient stable bedside's morning with soft c-collar in place. Optifoam dressing in place and is clean, dry, intact. Pain is under control with oral medication. Discharge home today with home care. 2. Appreciate medical management 3. Pain management -[place]; gabapentin; Flexeril 4. DVT prophylaxis -mechanical 5. GI prophylaxis -senna 6. PT/OT -soft c-collar in place at all times. 7. Encourage incentive spirometer use 8. Discharge planning -home today Time with Patient: Less than 30
[2025-01-19] MEDS: Phenol 1.4% Sore Throat Spray Bottle MUCOUS MEM PRN (12:50)
--- NOTE | 2025-01-19 14:46 | P.PN ---
Subjective Progress Note Date: 01/19/25 Hospital course: Patient is a very pleasant 69-year-old male with a past medical history of asthma, GERD, BPH, and depression. He is currently admitted under orthospine surgery team status post C5-C7 anterior cervical arthrodesis with instrumentation and insertion of biomechanical cage x 2. Surgical procedure was completed by Dr. Hernandez. Physical exam: Patient seen and fully evaluated at bedside. He was sitting up in chair with at bedside. Patient reports mild postoperative pain to anterior neck but also reports some throat pain as well. He denies any difficulty swallowing and has been able to take medications and eat breakfast without difficulties. Patient denies having any headache, lightheadedness, dizziness, chest pain, palpitations, shortness of breath, nausea, vomiting, or experiencing any numbness/tingling/weakness in his extremities. Patient reports occasional pain shooting down the arm such as the pain he felt prior to surgery but states not as often and not as severe. He reports he has been urinating without any difficulties and ambulatory without any difficulties. Vital signs reviewed and stable. General: Nontoxic, no distress and appears stated age. Derm: Skin warm and dry, normal coloration for ethnicity. Head: Atraumatic, normocephalic and symmetric. Soft cervical collar in place. Eyes: EOM's intact, no lid lag, and anicteric sclera Mouth: no lip lesions, mucus membranes moist Cardiovascular: regular rate and rhythm with normal S1S2, no murmur, positive posterior tibial pulses bilaterally, and cap refill < 2 seconds. Lungs: Respirations even, regular, and unlabored on room air. Lungs CTA bilaterally, no rhonchi, no rales, no wheezing, and no accessory muscle usage. Abdominal: soft, nontender to palpation, no guarding, no appreciable o rganomegaly Ext: ROM intact. No gross muscle atrophy, no edema, no contractures Neuro: Speech clear, face symmetrical and CN II-XII grossly intact with no noted focal neuro deficits Psych: Alert and oriented to person, place, time, and situation. Appropriate and pleasant affect. Assessment and Plan of Care: Status post C5-C7 anterior cervical arthrodesis with instrumentation and insertion of biomechanical cage x 2 -Management per primary admitting orthospine surgery team including DVT prophyl axis, pain management, wound/dressing/drain management, and PT/OT. -Currently DVT prophylaxis with LEONOR hose and SCDs. Leukocytosis -Leukocytosis reactive secondary to surgical procedure, no signs of infection noted. No need for further intervention at this time. BPH Continue Flomax 0.4 mg daily. Depression Continue Wellbutrin 300 mg daily and Prozac 40 mg daily. Data reviewed: Postoperative labs reviewed. CBC showing mild leukocytosis with WBC count of 11.25 otherwise normal findings. BMP unremarkable. Blood glucose 106. Calcium 9.2. Potassium 4.0. Vital signs reviewed. Blood pressure 153/88, heart rate 67, respiratory rate 16, temp 97.8 F, and SpO2 of 97% on room air. Patient is medically ready for discharge once cleared by primary admitting orthospine surgery team. Thank you for allowing us to participate in the care of this pleasant patient. Do not hesitate to contact us with questions. Someone can be reached from the [facility] hospitalist group all hours of the day at [phone] or via [employer]. Patient was seen independently by Nurse Pracitioner. This document was prepared using [employer] dictation software. Please allow for errors in plant sciences professor, while rare they do occur. Nba Ramirez NP rendered care for this patient independently, reviewed the findings and plan as documented in the note above and agree with plan. I did not physically speak with or examine the patient on this date. Objective - Vital Signs Vital signs: Vital Signs Temp 97.8 F 01/19/25 06:54 Pulse 67 01/19/25 06:54 Resp 16 01/19/25 06:54 BP 153/88 01/19/25 06:54 Pulse Ox 97 01/19/25 06:54 FiO2 Intake & Output 01/18/25 01/19/25 01/19/25 18:59 06:59 18:59 Intake Total 1875 Output Total 230 Balance 1645 Weight 107 kg Intake: IV 1650 Oral 225 Output: Urine 205 Estimated Blood Loss 25 Other: # Voids 2 4 - Labs CBC & Chem 7: 01/19/25 03:34 01/19/25 03:34 Labs: Abnormal Lab Results - Last 24 Hours (Table) 01/18/25 01/19/25 Range/Units 16:51 03:34 WBC 11.36 H 11.25 H (4.50-10.00) 10*3/uL MPV 8.7 L 9.1 L (9.5-12.2) fL Neutrophils # 10.29 H 8.42 H (1.80-7.70) 10*3/uL Lymphocytes # 0.62 L (0.90-5.00) 10*3/uL Eosinophils # 0.01 L (0.04-0.35) 10*3/uL
== END 2025-01-19 13:01 | disposition home health service (06) ==
LOC: OR 07:04 → 4SSUR 11:35 → OR 01-19 13:01
PROVIDERS: ATTEND Orthopaedic Surgery
DX: M47.22 Other spondylosis with radiculopathy, cervical region (principal); M48.02 Spinal stenosis, cervical region; M50.322 Other cervical disc degeneration at C5-C6 level; M50.323 Other cervical disc degeneration at C6-C7 level; R20.2 Paresthesia of skin; J45.909 Unspecified asthma, uncomplicated; N40.0 Benign prostatic hyperplasia without lower urinary tract symptoms; Z98.1 Arthrodesis status; E11.9 Type 2 diabetes mellitus without complications; F32.A Depression, unspecified
CPT/HCPCS: 97161; 80048; 85025 ×2; 72040; 72125; 22551; 22552; 22853; C1713; J0690 ×2; J2405; J1171; J0665